=== PATIENT | male | born 1930 | race Caucasian/White ===

== ENCOUNTER 2018-12-06 23:01 | Emergency (ER) | payer MEDICARE, OTHER ==
[2018-12-06 23:01] VITALS: BMI 24.8
[2018-12-06 23:28] VITALS: TEMP 97.8
--- NOTE | 2018-12-06 23:38 | C.PDOC ---
History Of Present Illness 88 year old male presents to the ED c/o dizziness, nausea and feeling nauseous. Patient reports his dizziness worsens with head movement and when standing up or laying down. Patient denies headache, visual changes, nausea, vomit, CP, SOB, palpitations, rash, weakness, numbness. Time Seen by Provider: 12/06/18 23:37 Chief Complaint (Nursing): Dizziness/Lightheaded History Per: Patient History/Exam Limitations: no limitations Onset/Duration Of Symptoms: Hrs Current Symptoms Are (Timing): Still Present Number Of Syncopal Episodes: 1 Activity At Onset Of Symptoms: Lying, Standing Associated Symptoms Preceding Syncopal Episode: Worse With Standing Seizure Or Post-ictal Symptoms: None Severity: None Recent travel outside of the [place]: No Additional History Per: Patient Past Medical History Reviewed: Historical Data, Nursing Documentation, Vital Signs Vital Signs: Last Vital Signs Temp 97.8 F 12/06/18 23:17 Pulse 89 12/06/18 23:17 Resp 20 12/06/18 23:17 BP 162/80 H 12/06/18 23:17 Pulse Ox 97 12/06/18 23:17 - Medical History PMH: Gall Bladder Disease, HTN, Hypercholesterolemia Denies: Chronic Kidney Disease Surgical History: Cholecystectomy - [facility] Procedures ESOPHAGOGASTRODUODENOSCOPY [EGD] W/CLOSED BIOPSY (11/02/14) Family History: States: Unknown Family Hx - Social History Hx Tobacco Use: No Hx Alcohol Use: No Hx Substance Use: No - Immunization History Hx Tetanus Toxoid Vaccination: No Hx Influenza Vaccination: No Hx Pneumococcal Vaccination: No Review Of Systems Constitutional: Negative for: Fever, Chills Eyes: Negative for: Vision Change Cardiovascular: Negative for: Chest Pain Respiratory: Negative for: Shortness of Breath Gastrointestinal: Positive for: Nausea. Negative for: Vomiting, Abdominal Pain Skin: Negative for: Rash Neurological: Positive for: Dizziness. Negative for: Weakness, Numbness, Headache Psych: Positive for: Anxiety Physical Exam - Physical Exam Appears: Non-toxic, No Acute Distress Skin: Warm, Dry Head: Normacephalic Eye(s): bilateral: Normal Inspection, Other (no nystgamus) Oral Mucosa: Moist Neck: No Midline Cervical Tenderness, Supple Chest: Symmetrical Cardiovascular: Rhythm Regular Respiratory: No Rales, No Rhonchi, No Wheezing Gastrointestinal/Abdominal: Soft, No Tenderness, No Guarding, No Rebound Extremity: Bilateral: Atraumatic, Normal Color And Temperature, Normal ROM Neurological/Psych: Oriented x3, Normal Speech, Normal Cognition, Other (non focal) Gait: Steady ED Course And Treatment - Laboratory Results Result Diagrams: 12/07/18 00:07 12/07/18 00:07 ECG: Interpreted By Me, Viewed By Me ECG Rhythm: Sinus Rhythm (85), Nonspecific Changes (freq pvc's. lad) O2 Sat by Pulse Oximetry: 97 (ON RA) Pulse Ox Interpretation: Normal - Radiology CXR: Interpreted by Me, Viewed By Me CXR Interpretation: No: Infiltrates, Fracture, Pnemothorax - CT Scan/US CT head Other Rad Studies (CT/US): Read By Radiologist, Radiology Report Reviewed CT/US Interpretation: EXAM: CT Head without Intravenous Contrast. CLINICAL HISTORY: VERTIGO. TECHNIQUE: Axial computed tomography images of the head/brain without intravenous contrast. 0.00 mGy-cm. COMPARISON: None provided. FINDINGS: BRAIN. There is mild periventricular, deep and subcortical white matter hypodensity bilaterally, compatible with mild microangiopathy. No evidence for acute intracranial hemorrhage. VENTRICLES: There is moderate prominence of ventricles and sulci compatible with moderate atrophy. ORBITS: The orbits are unremarkable. SINUSES AND MASTOIDS: The paranasal sinuses and mastoid air cells are clear. BONES: No evidence for d isplaced calvarial fracture. SOFT TISSUES: Unremarkable. MISCELLANEOUS: No CT evidence for acute territorial infarction. IMPRESSION: 1. There is moderate prominence of ventricles and sulci compatible with moderate atrophy. 2. There is mild periventricular, deep and subcortical white matter hypodensity bilaterally, compatible with mild microangiopathy. 3. No CT evidence for acute intracranial abnormality. . Electronically signed on Dec 07, 2018 3:16:57 AM EDT by: Pineda Horowitz M.D., Certified by ABR, MSK, Neuroradiology. Progress Note: Plan: - VBG. - CT head. - EKG. - Labs. - CXR. - Antivert 25 mg PO. - IV fluids. - UA. ambulating without difficulty., dizziness is gone Reevaluation Time: 03:20 Reassessment Condition: Improved Medical Decision Making Medical Decision Making: Upon provider reevaluation patient is feeling better, is medically stable, and requires no further treatment in the ED at this time. Patient will be discharged home with Rx for antivert, zofran . Counseling was provided and all questions were answered regarding diagnosis and need for follow up withdr jaramillo. There is agreement to discharge plan. Return if symptoms persist or worsen. Disposition Counseled Patient/Family Regarding: Studies Performed, Diagnosis, Need For Followup, Rx Given - Disposition Referrals: Charisse Jaramillo MD [Staff Provider] - Disposition: HOME/ ROUTINE Disposition Time: 23:37 Condition: FAIR Additional Instructions: Please return if symptoms recur Prescriptions: Meclizine [Antivert] 25 mg PO TID #15 tab Ondansetron ODT [Zofran ODT] 1 odt PO BID PRN #6 odt PRN Reason: Nausea/Vomiting Instructions: Labyrinthitis, Vertigo (a Type of Dizziness) (DC) Forms: [employer] (Yoruba) Print Language: HUNGARIAN - Clinical Impression Clinical Impression: Dizziness, Labyrinthitis - Scribe Statement The provider has reviewed the documentation as recorded by the Scribjohny Leo All medical record entries made by the Scribe were at my direction and pers onally dictated by me. I have reviewed the chart and agree that the record accurately reflects my personal performance of the history, physical exam, medical decision making, and the department course for this patient. I have also personally directed, reviewed, and agree with the discharge instructions and disposition.
[2018-12-06] MEDS ORDERED: Sodium Chloride 0.9% 1,000 ML IV SCH (23:45)
[2018-12-07] MEDS ORDERED: Sodium Chloride 0.9% 1,000 ML ONE (00:16)
[2018-12-07 00:22] LABS: PROTHROMBIN TIME 10.9 SECONDS (9.7-12.2)
[2018-12-07 00:25] LABS: BASO % 0.3 % (0.0-2.0); EOS # 0.1 K/uL (0.0-0.7); EOS % 0.9 % (0.0-4.0); HEMOGLOBIN 13.5 g/dL (12.0-18.0); LYMPH # 0.6 K/uL (1.0-4.3); LYMPH % 8.1 % (20.0-40.0); MEAN CELL VOLUME 91.1 fL (80.0-94.0); MEAN CORPUSCULAR HEMOGLOBIN 31.2 pg (27.0-31.0); MEAN CORPUSCULAR HGB CONC 34.2 g/dL (33.0-37.0); MEAN PLATELET VOLUME 7.2 fL (7.2-11.7); MONO # 0.3 K/uL (0.0-0.8); MONO % 4.2 % (0.0-10.0); NEUT # 5.9 K/uL (1.8-7.0); NEUT % 86.5 % (50.0-75.0); PLATELET COUNT 241 K/uL (130-400); RBC 4.32 Mil/uL (4.40-5.90); RED CELL DISTRIBUTION WIDTH 12.8 % (11.5-14.5); WHITE BLOOD COUNT 6.8 K/uL (4.8-10.8)
[2018-12-07 00:29] LABS: ALBUMIN 4.7 g/dL (3.5-5.0); ALT/SGPT 22 U/L (21-72); AST/SGOT 19 U/L (17-59); BLOOD UREA NITROGEN 26 mg/dL (9-20); CALCIUM 8.6 mg/dl (8.6-10.4); GFR NON-AFRICAN AMERICAN > 60
[2018-12-07 00:40] LABS: VENOUS BLOOD GAS PCO2 40 mmHg (40-60); VENOUS BLOOD GAS PO2 50 mm/Hg (30-55); VENOUS BLOOD PH 7.43 (7.32-7.43)
[2018-12-07 00:41] LABS: B-TYPE NATRIURETIC PEPTIDE 129 pg/mL (0-900)
[2018-12-07 00:59] LABS: LYMPHOCYTE 5 % (20-40); MONOCYTE 4 % (0-10); NEUTROPHIL 90 % (50-75); PLATELET ESTIMATE NORMAL (NORMAL); REACTIVE LYMPHOCYTES 1 % (0-0); TOTAL CELLS COUNTED 100
[2018-12-07 03:40] VITALS: BP 164/79; PULSE 89; RESP 20; O2SAT 96
--- NOTE | 2018-12-07 09:17 | CT ---
Date of service: 12/07/2018 PROCEDURE: CT HEAD WITHOUT CONTRAST. HISTORY: dizziness COMPARISON: None available. TECHNIQUE: Axial computed tomography images were obtained through the head/brain without intravenous contrast. Radiation dose: Total exam DLP = 1146.71 mGy-cm. This CT exam was performed using one or more of the following dose reduction techniques: Automated exposure control, adjustment of the mA and/or kV according to patient size, and/or use of iterative reconstruction technique. FINDINGS: HEMORRHAGE: No intracranial hemorrhage. BRAIN: No mass effect or edema. There is mild volume loss noted. [id number] white matter changes are also noted likely represent chronic microvascular ischemic disease. VENTRICLES: Unremarkable. No hydrocephalus. CALVARIUM: Unremarkable. PARANASAL SINUSES: Unremarkable as visualized. No significant inflammatory changes. MASTOID AIR CELLS: Unremarkable as visualized. No inflammatory changes. OTHER FINDINGS: None. IMPRESSION: No evidence of acute intracranial hemorrhage mass effect or midline shift. Mild volume loss and [id number] chronic microvascular white matter ischemic disease. Preliminary report contains concordant findings was submitted by [facility] Radiology.
--- NOTE | 2018-12-07 13:29 | RAD ---
Date of service: 12/07/2018 PROCEDURE: CHEST RADIOGRAPH, 1 VIEW HISTORY: SOB COMPARISON: None available. FINDINGS: LUNGS: Clear. PLEURA: No pneumothorax or pleural fluid seen. CARDIOVASCULAR: No aortic atherosclerotic calcification present. Normal. OSSEOUS STRUCTURES: No significant abnormalities. VISUALIZED UPPER ABDOMEN: Normal. OTHER FINDINGS: None. IMPRESSION: No active disease.
--- NOTE | 2018-12-08 12:51 | CARD ---
APPROVED REPORT Date of service: 12/07/2018 EKG Measurement Heart [id number] <Conclusion> Sinus rhythm with frequent premature ventricular complexes Left axis deviation Inferior infarct, age undetermined Abnormal ECG
== END 2018-12-07 03:40 | disposition home or self-care (01) ==
LOC: C.ER 23:01
DX: R42 Dizziness and giddiness (principal); H83.09 Labyrinthitis, unspecified ear; I10 Essential (primary) hypertension; E78.00 Pure hypercholesterolemia, unspecified
CPT/HCPCS: 70450; 71045; 80053; 82803; 82948; 83880; 84484; 85025; 85610; 85730; 93005; 99285; J7030